=== PATIENT | male | born 1955 | race Caucasian/White ===

== ENCOUNTER 2020-01-20 12:17 | Emergency (ER) | payer OTHER ==
--- NOTE | 2020-01-20 12:35 | TELE ---
HPI Do you have fever,cough or shortness of breath?: No - General Reason For Visit: COVID 19 TEST History Source: Patient Exam Limitations: No Limitations - History of Present Illness 01/20/20 12:28 Patient is a 64-year-old male who participated in a virtual urgent care visit for COVID testing. He states this morning he began to feel a little increased fatigue and mild dizziness with his morning workout. He denies any cough or fevers. He states he felt slightly nauseated but that has resolved. The patient denies any shortness of breath, body aches, loss of taste. He denies traveling outside of the [place] for the last 30 days and denies traveling outside of [place] in the last 14. He states he was told that these can be symptoms of COVID and would like to know if he is COVID positive. He denies any known COVID contacts. Review of Systems - Review of Systems Comments:: 01/20/20 12:30 - Review of Systems Able to Perform ROS?: Yes Constitutional: No: Fever, Chills, Loss of Appetite, Night Sweats, Weakness; positive: Resolved dizziness, increased fatigue, nausea HEENTM: No: Eye Pain, Vision changes, Ear Pain, Throat Pain, Throat Swelling, Mouth Pain, Difficulty Swallowing Respiratory: No: Cough, Shortness of Breath, Wheezing, Sputum Production Cardiac (ROS): No: Chest Pain, Chest Tightness, Palpitations, Irregular Heart Beat, Edema ABD/GI: No: Vomiting, Abdominal Pain, Diarrhea : No Dysuria, No Hematuria, No Frequency, No Urgency Musculoskeletal: No: Muscle Pain, Back Pain, Joint Pain, Muscle Weakness, Neck P ain Integumentary: No: Lesions, Rash Neurological: No: Headache, Numbness, Tingling, Weakness, Speech Difficulties *Physical Exam - Physical Exam 01/20/20 12:30 - Physical Exam General Appearance: Nourished, Appropriately Dressed, No Distress HEENT: EOMI, Normal Voice, Hearing Grossly Normal Neck: No Decreased range of motion Respiratory/Chest: Normal chest excursion appreciated, No Accessory Muscle Use Gastrointestinal/Abdominal: No distention Musculoskeletal: Normal Inspection Integumentary: Normal Color, Dry. 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 He would like to have a COVID swab done. Plan: -COVID swab ordered -COVID counseling given, isolation precautions reviewed -The patient has been made aware that he should still follow-up with his primary doctor or be evaluated in the ED for his dizziness and nausea. He states he will follow-up with his primary but would still like a COVID swab. -Patient instructed to proceed to the [facility] for his COVID swab. He has been made aware that the results will become available within 1 to 3 days and we will call him with the results -Patient understands and agrees with this treatment plan Discharge Diagnosis at time of Disposition: Counseled about COVID-19 virus infection, Dizziness - Referrals Follow-up Referral(s): ON STAFF,NOT [Primary Care Provider] - - Patient Instructions Discharge Instructions: [facility]-Coronavirus Instructions, [facility] COVID-19 Isolation Protocol Additional Discharge Instructions: You were seen via a telehealth visit and tested for COVID today. You should follow isolation precautions as per [facility] guidelines. Thank you for participating in our telehealth medicine program. If you have any worsening symptoms such as high fever, shaking chills, profuse vomiting or any other worsening symptoms you should go to your local emergency department immediately or follow up with your primary care doctor immediately. If you become symptomatic: Take Tylenol 650 mg every 6 hours as needed for fever or pain. You may take Robitussin or other [id number] cough syrup. Follow the dosing ins tructions on the bottle. Warm tea, honey, and salt water gargles may help your symptoms. Please take precautions and self quarantine for 2 weeks and follow-up with your primary care doctor and the Department of Health. Return to the nearest emergency department for shortness of breath, difficulty breathing, chest pain, or if you have any changes in your symptoms. - Discharge Disposition: HOME Condition at time of Disposition: Stable
== END 2020-01-20 12:35 | disposition home or self-care (01) ==
LOC: JVIRT 12:17
DX: Z11.59 Encounter for screening for other viral diseases (principal)
CPT/HCPCS: 36415; 86769; Q3014-GT; U0003